=== PATIENT | female | born 1940 | race Caucasian/White ===

== ENCOUNTER 2018-05-30 08:09 | Emergency (ER) | payer MEDICARE, BC ==
[2018-05-30] MEDS ORDERED: ULTRAM50 M1 PO (09:28)
[2018-05-30 10:25] VITALS: BP 178/81
[2018-06-05] MEDS ORDERED: OMEPRAZOLE20 M2 PO (17:49)
[2018-06-05] MEDS ORDERED: CLARITIN10 M2 PO (17:50)
== END 2018-05-30 10:40 | disposition home or self-care (01) ==
LOC: ED 08:09
PROC: 2W3RX1Z Immobilization of Left Lower Leg using Splint (ICD-10-PCS; principal; 2018-05-30)
DX: S92.002A Unspecified fracture of left calcaneus, initial encounter for closed fracture (principal); W17.89XA Other fall from one level to another, initial encounter; Y93.K9 Activity, other involving animal care; Y92.79 Other farm location as the place of occurrence of the external cause

== ENCOUNTER 2018-06-06 09:56 | Day surgery (SDC) | payer MEDICARE, BC ==
[~2018-06-06 09:56] MED LIST: CLARITIN10 M2 PO; OMEPRAZOLE20 M2 PO; ULTRAM50 M1 PO
[2018-06-06] MEDS ORDERED: PERCOCET 10/31 COMBO PO (13:02)
[2018-06-06] MEDS ORDERED: KEFLEX500 MG PO (13:02)
[2018-06-06] MEDS ORDERED: ECOTRIN LOW STR81 MG PO (13:02)
[2018-06-06 13:17] VITALS: BP 148/58
== END 2018-06-06 13:40 | disposition home or self-care (01) ==
LOC: ORM 09:56
PROVIDERS: ATTEND Podiatrist Foot & Ankle Surgery
PROC: 0QSM04Z Reposition Left Tarsal with Internal Fixation Device, Open Approach (ICD-10-PCS; principal; 2018-06-06)
PROC: 0LNW0ZZ Release Left Foot Tendon, Open Approach (ICD-10-PCS; 2018-06-06)
DX: S92.062A Displaced intraarticular fracture of left calcaneus, initial encounter for closed fracture (principal); M65.872 Other synovitis and tenosynovitis, left ankle and foot; X58.XXXA Exposure to other specified factors, initial encounter

== ENCOUNTER 2018-06-08 17:14 | Emergency (ER) | payer MEDICARE, BC ==
[~2018-06-08] VITALS: Ht 165.1 cm; Wt 70.0 kg
[~2018-06-08 17:14] MED LIST changes: +ECOTRIN LOW STR81 MG PO; +KEFLEX500 MG PO; +PERCOCET 10/31 COMBO PO
[2018-06-08 17:42] VITALS: BP 179/87
== END 2018-06-08 17:44 | disposition home or self-care (01) ==
LOC: ED 17:14
DX: Z48.01 Encounter for change or removal of surgical wound dressing (principal)